=== PATIENT | female | born 1950 | race Caucasian/White ===

== ENCOUNTER 2017-04-04 11:40 | Outpatient (CLI) | payer MEDICARE ==
[2017-04-04] MEDS ORDERED: Gadobenate Dimeglumine 529 MG/1 ML (20ML VIAL) ONE (13:20)
--- NOTE | 2017-04-04 15:08 | MRI ---
EXAM: BRAIN MRI WITHOUT AND WITH CONTRAST: COMPARISON: 04/21/14; 10/25/15, and 04/24/16 ([facility]). HISTORY: Malignant neoplasm of the frontal lobe. TECHNIQUE: A brain MRI is performed with and without intravenous Gadolinium administration. Multisequential, mu ltiplanar imaging is performed. FINDINGS: Stable postsurgical change with gliosis and hemosiderin deposition involving the left frontal lobe. The degree of T2 and FLAIR hyperintensity has not changed since the most recent prior examination. N o areas of acute or recent hemorrhage. With the exception of postsurgical change in the left frontal lobe, cortical fournier-white matter differentiation is preserved. Ventricles and sulci are patent and symmetric. Chronic small-vessel ischemic changes of the white matter are unchanged. Central arterial flow voids are maintained. Absent restricted diffusion. Stable appearance of the v entricular system. Adequate aeration of the sinuses and mastoid air cells. No pathologic enhancement of the brain parenchyma. No significant parenchymal enhancement. Stable e nhancement of the left frontal and temporal dura, likely postoperative. Coronal images demonstrate l inear enhancement (1.0 x 1.0 x 1.2 cm), unchanged. Scar formation is favored. IMPRESSION: Stable postsurgical changes. Stable postoperative changes involving the left frontal craniotomy. St able malacic gliotic changes. Stable enhancement suggesting postsurgical changes overlying dura. Ar eas of linear enhancement are also redemonstrated, likely representing scar. No new areas of enhance ment are appreciated. POS: [facility]
== END 2017-04-04 11:41 | disposition home or self-care (01) ==
LOC: MRI 11:40
PROVIDERS: ATTEND Internal Medicine Hematology & Oncology
DX: Z23 Encounter for immunization (principal); C71.1 Malignant neoplasm of frontal lobe; Z98.890 Other specified postprocedural states
CPT/HCPCS: 70553; A9579

== ENCOUNTER 2018-04-03 08:56 | Outpatient (CLI) | payer MEDICARE ==
[2018-04-03] MEDS ORDERED: Gadobenate Dimeglumine 529 MG/1 ML (20ML VIAL) ONE (10:26)
--- NOTE | 2018-04-03 12:18 | MRI ---
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 COMPARISON: 04/24/16 and 04/04/17. TECHNIQUE: Multiple sequences obtained in axial, sagittal, and coronal planes; pre and post IV injection of gado linium-based contrast agent: 15 mL MultiHance. FINDINGS: Left frontal craniotomy changes, deep to which there is left frontal lobe encephalomalacia and gliosi s, with associated ex vacuo dilation of frontal horn of left lateral ventricle. Just deep to the cran iotomy bone flap is the irregularly shaped enhancement that is extra-axial based, with thin, short li near branches extending into the region of encephalomalacia, presumably representing postsurgical sca r tissue. This has not changed compared to 04/04/17 and 04/24/16. There are no new areas of abnormal enhancement in the brain parenchyma. No obstructive hydrocephalus. No recent intra-axial hemorrhage. No mass effect, midline shift, or new extra-axial fluid collection . No interval change overall. IMPRESSION: 1. Left frontal postsurgical craniotomy changes with left frontal lobe encephalomalacia and gliosis. 2. The previously described enhancement in the surgical bed is unchanged, probably representing post surgical scar tissue. 3. No convincing evidence of recurrent neoplasm. No interval change overall. SUZAN Viramontes POS: [facility]
== END 2018-04-03 08:57 | disposition home or self-care (01) ==
LOC: BICMRI 08:56
PROVIDERS: ATTEND Internal Medicine Hematology & Oncology
DX: C71.1 Malignant neoplasm of frontal lobe (principal); G93.89 Other specified disorders of brain; Z98.890 Other specified postprocedural states
CPT/HCPCS: 70553; 82565; A9577

== ENCOUNTER 2019-04-16 13:35 | Outpatient (CLI) | payer MEDICARE ==
[2019-04-16 14:37] LABS: Estimated GFR-MDRD - POC Greater than 90
[2019-04-16] MEDS ORDERED: Magnevist 469MG/ML 20 ML VIAL ONE (14:55)
--- NOTE | 2019-04-16 15:00 | MRI ---
MRI of thebrain with and without contrast: 04/16/2019 COMPARISON:04/03/2018, 04/04/2017 HISTORY:Malignant neoplasm of the frontal lobe TECHNIQUE: Multiplanar multisequence MR imaging of thebrain with and without contrast Findings:The diffusion weighted imaging demonstrates no evidence for acute infarction. Evidence of pr ior left frontal craniotomy noted. Arterial flow voids at the axial level of the skull base appear grossly unremarkable on the T2-weight ed imaging. The imaged paranasal sinuses and mastoid air cells appear well-aerated. There is a postoperative cavity deep to the left frontal craniotomy site. In this region there is enc ephalomalacia involving the left frontal lobe with prominence of the frontal horn of the left lateral ventricle, stable. There is stable T2 hyperintensity within the brain parenchyma at the posto perative site and a gradient echo imaging demonstrates minimal linear blooming artifact in this region on the basis of blood products associated with prior surgery. The postcontrast imaging demonstrates mild linear dural based enhancement along the anterior lateral margin of the postoperative cavity, which does not appear significantly changed when compared to the prior exam. No MR evidence for residual/recurrent tumor is appreciated. The whole brain postcontr ast imaging demonstrates no additional areas of abnormal enhancement. IMPRESSION: No significant interval change with regard to postoperative findings within the left fron iliana lobe. No convincing evidence for residual/recurrent neoplasm.
== END 2019-04-16 13:36 | disposition home or self-care (01) ==
LOC: MRI 13:35
PROVIDERS: ATTEND Internal Medicine Hematology & Oncology
DX: C71.1 Malignant neoplasm of frontal lobe (principal); Z98.890 Other specified postprocedural states
CPT/HCPCS: 70553; 82565; A9579